=== PATIENT | female | born 1945 | race Caucasian/White ===

== ENCOUNTER 2017-04-07 13:29 | Emergency (ER) | payer MEDICARE ==
[~2017-04-07] VITALS: Ht 160 cm; Wt 65.9 kg
[2017-04-07 13:32] VITALS: BP 149/93; PULSE 83; RESP 15; O2SAT 94
--- NOTE | 2017-04-07 13:57 | ED.REPORT ---
HPI-Stroke / CVA Apr 07, 2017 ED Provider: Keon Solorzano MD The pt is a 71 y/o female on Aspirin with a hx of TIA and osteoporosis who presents to the ED complaining of difficulty maintaining balance, onset 3 days ago. She has felt the need to hold onto something when walking due to lightheadedness. She states "it feels like I'm in a fog." She felt better yesterday but her sx worsened significantly today. The pt had similar sx last week at which point she had a CT done at [facility] and was diagnosed with a TIA. She has been taking Aspirin and Lipitor since. Today, she also complains of tremors, nausea and an unusual feeling in her left eye. She is unable to describe the feeling in her left eye. She denies pain anywhere, unilateral numbness or weakness, speech problems and difficulty swallowing. Nursing Notes Stated Complaint: POSS AFFECTS FROM MINI STROKE (1 WK AGO) Chief Complaint: Neuro Symptoms/ Deficits Nursing Notes Reviewed: Yes (Airpush, FiveRunss not reconciled) Allergies: Coded Allergies: No Known Allergies (Unverified , 04/07/17) General Time Seen by Provider: 13:42 Chief Complaint Other (difficulty maintaining balance) Hx Obtained From: Patient Arrived By: Walk-in Time last known well 3 days ago Sudden in Onset?: Yes Symptom Duration: Since onset Progression Since Onset: Unchanged Severity: Current: No pain currently Severity: Maximum: No pain Recent Healthcare: Recent doctor visit Similar Sx Previous: Yes Risk Factors )( TPA Administration/Criteria Stroke Thrombolytic Therapy : TPA Considered: Yes TPA Administered Intravenously: No, exclusion criteria Exclusion Criteria: Prior stroke / 90 days NIH Stroke Scale Level of Consciousness: Not alert, arousable (1) Ask Month & Age: Both questions right (0) Open/Close Eyes/Hand Polisher Implant: Performs both tasks (0) Horizontal EO Movements: None (0) Visual Alex: No visual loss (0) Facial Palsy: Normal symmetry (0) Right Arm Motor Drift (10s): No drift 10 sec (0) Left Arm Motor Drift (10s): No drift 10 sec (0) Right Leg Motor Drift (5s): No drift 5 sec (0) Left Leg Motor Drift (5s): Drift, not touch bed (1) Limb Ataxia FNF/Heel-Moirn: No ataxia (0) Sensation (Arms/Legs/Face): No sensory loss (0) Language Aphasia: No aphasia, normal (0) Dysarthria: No dysarthria, normal (0) NIHSS Score: 1 Time NIHSS Performed: 13:28 Date NIHSS Performed: Apr 07, 2017 Past Medical History Past Medical History Diagnosed with TIA 01/22/2017, started on aspirin plus statin Osteoporosis History of "collagenous colitis" History of megaloblastic anemia or EMR History of compression fractures of thoracic vertebra and acquired postural kyphosis TIA Past Surgical History none reported Smoking History Never Smoker ("I Vape") Social History Alcohol Use: 1-3 per day ("1 drink/night") Drug Use: Denies drug use Ambulatory Status Independent Review of Systems Reports: unusual feeling in the left eye Denies: pain anywhere GI: Reports: Nausea, Denies: Dysphagia Neurologic: Reports: Lightheaded, Problem walking (difficulty maintaining balance), Shaking, Denies: Numbness (unilaterally), Slurred speech, Unable to speak, Weakness ( unilaterally) Complete sys rev & neg: except as marked. Physical Exam Initial Vital Signs Vital Signs (First) Date Time Temp Pulse Resp B/P Pulse Ox O2 Delivery O2 Flow Rate FiO2 04/07/17 13:32 37.1 83 15 149/93 94 Room Air Initial VS: Reviewed, Vital signs normal Abdomen / GI: Soft, Non-tender Extremities: Vascular intact, Neuro intact, No swelling, No tenderness Skin: Warm, Dry, No cyanosis General/Constitutional: Awake, Alert, No acute distress, Cooperative Head / Eyes: Atraumatic, Normocephalic, PERRL, EOMI Neck: Atraumatic, Supple, Full range of motion, No swelling, Non-tender Respiratory / Chest: Atraumatic, Breath sounds NL, Breath sounds = bilat, No respiratory distress, No rales, No rhonchi, No wheezing Cardiovascular: Heart rate NL, Regular rhythm, Heart sounds NL, No gallop, No murmurs, No rubs Neurologic: Oriented X3, Speech NL, No motor deficits, No sensory deficits Speech ok Tremors bilaterally that she says is new. Left leg drift. Upper Extremity / MS: Atraumatic, Full range of motion, No swelling, No erythema, No deformity, Neurologic intact, Vascular intact Lower Extremity / Pelvis / MS: Atraumatic, Full range of motion, No swelling, No deformity, Neurologic intact, Vascular intact Interpretation & Diagnostics Interpretation & Diagnostics: MRI STROKE PROTOCOL: BRAIN MRI: 1. No acute intracranial abnormalities. 2. Addis-ventricular and deep white matter chronic small vessel ischemic change. BRAIN MR ANGIOGRAM: No hemodynamically significant lesions of the central intracranial vasculature. NECK MR ANGIOGRAM: No hemodynamically significant lesions of the extracranial neck vasculature. The estimate of stenosis included in the report of the imaging study was calculated using the NASCET method Dictated by: Ruperto Nieves M.D. on 04/07/2017 at 19:29 Lab Results Interpretation Result Diagram: 04/07/17 1516 04/07/17 1516 Test 04/07/17 13:43 04/07/17 15:16 04/07/17 15:17 Urine Color Straw (YELLOW) Urine Appearance Hazy (CLEAR,HAZY) Urine pH 6.0 (5.0-8.0) Urine Specific [place] 1.005 (1.003-1.035) Urine Protein Negativemg/dL (NEG,TRACE) Urine Glucose (UA) Negativemg/dL (NEGATIVE) Urine Ketones Negativemg/dL (NEGATIVE) Urine Occult Blood Negative (NEGATIVE) Urine Nitrite Negative (NEGATIVE) Urine Bilirubin Negative (NEGATIVE) Urine Urobilinogen Normalmg/dL (NORMAL) Urine Leukocyte Esterase Negative (NEGATIVE) Urine RBC 0-2/hpf (0-2) Urine WBC 0-5/hpf (0-5) Urine Epithelial Cells Occasional/hpf (NONE-MOD) Urine Crystals None seen (NONE SEEN) Urine Bacteria None/hpf (NONE-FEW) Urine Hyaline Casts None/lpf (NONE) Urine Granular Casts None seen (NONE SEEN) Urine Waxy Casts None seen (NONE SEEN) Urine Red Blood Cell Casts None seen (NONE SEEN) Urine White Blood Cell Casts None seen (NONE SEEN) Urine Mucus None seen (None Seen) Urine Trichomonas None seen (NONE SEEN) Urine Yeast None (NONE SEEN) Urinalysis Comment None Urine Culture Reflexed Not indicated White Blood Count 7.2th/mm3 (3.8-10.1) Red Blood Count 3.92mil/mm3 (3.90-5.20) Hemoglobin 13.4g/dL (12.0-15.6) Hematocrit 39.8% (35.0-46.0) Mean Corpuscular Volume 101.5fL (81-100) Mean Corpuscular Hemoglobin 34.2pg (27.0-35.0) Mean Corpuscular Hemoglobin Concent 33.7% (32.0-37.0) Red Cell Distribution Width 12.7% (12.3-15.4) Platelet Count 230bil/L (150-400) Neutrophils (%) (Auto) 69.8% (40-74) Lymphocytes (%) (Auto) 21.7% (14-46) Monocytes (%) (Auto) 7.2% (4-12) Eosinophils (%) (Auto) 0.7% (0-5) Basophils (%) (Auto) 0.6% (0-3) Prothrombin Time 10.0sec (8.1-12.5) Prothromb Time International Ratio 0.94ratio Activated Partial Thromboplast Time 26.1sec (22.8-33.0) Sodium Level 141mEq/L (134-144) Potassium Level 4.2mEq/L (3.5-5.2) Chloride Level 100mEq/L (97-108) Carbon Dioxide Level 25mmol/L (18-29) Blood Urea Nitrogen 9mg/dL (8-27) Creatinine 0.48mg/dL (0.57-1.00) Estimat Glomerular Filtration Rate 183mL/min (>59) Glucose Level 101mg/dL (60-99) Calcium Level 9.7mg/dL (8.5-10.1) Total Bilirubin 0.6mg/dL (0.0-1.2) Aspartate Amino Transf (AST/SGOT) 29U/L (0-50) Alanine Aminotransferase (ALT/SGPT) 21U/L (0-32) Alkaline Phosphatase 63U/L (25-165) Troponin T < 0.010ug/L (0.0-0.011) Total Protein 7.3g/dL (6.4-8.4) Albumin 4.2g/dL (3.4-5.0) Hold Read Top Tube Received (Received) Lab Results Interpretation: CBC normal CMP normal troponin negative UA negative ECG Interpretation Time: 14:17 Interpreted by: ED physician Normal ECG Interpretation: Normal ECG w/ rate of... (76), Normal sinus rhythm CT Head Interpretation IMPRESSION: 1. No acute intracranial abnormality. 2. Mild chronic white matter small vessel ischemic changes and cerebral volume loss. Dictated by: Zenon Leon M.D. on 04/07/2017 at 14:10 Approved by: Zenon Leon M.D. on 04/07/2017 at 14:13 Study: Head CT no contrast Re-Eval/Medical Decision Med Decision/Clinical Course This is a 71-year-old female presents with a concern for repeat stroke. She reports she had an episode that was diagnosed as a probable TIA about 2 weeks ago as an outpatient which had a workup through [place], she was placed on aspirin. Over the past 3 days she has felt that she has not been right" she has been in a fog, that she is having difficulty with balance and coordination, though I cannot get her to really endorse clear cut focal deficits. She has not had a headache, fever or additional symptoms. On exam she appears generally well. There is a concern on her and her stroke scale testing that maybe she has a little left leg weakness, as her seems to be some asymmetry and trace to-although the patient retesting was able to ambulate without much difficulty and passed a physical therapy evaluation. Given the concern about a previous stroke 2 weeks ago now with new symptoms, I recommended admission for an MRI and formal workup, the patient thus far has declined. Therefore an extensive workup is being evaluated here, noncontrast head CT revealed no hemorrhagic conversion or abnormality. EKG is normal, blood work is normal, at this point an MRI is being obtained for further evaluation. If negative immediately be reasonable to discharge the patient to home she prefer, but if abnormal I think the patient may return either consent to admission, or be discharged AGAINST MEDICAL ADVICE. The patient's preterminal oncoming partner change shift pending MRI results. She does currently have outpatient neurology consultation scheduled-but not until July Notes from Dr. Smith: Patient's MRI returned showing no acute findings. These are discussed with the patient and she was very pleased to hear this. Her symptoms are no longer present and she is wanting to go home. I have asked her to follow up with her primary care provider within the next week for a reevaluation/recheck. Patient is agreeable. Source of Hx: Old records Re-Evaluation/Progress #1: Time of Eval: 16:04 Re-Evaluation/Progress Note: Rechecked pt. Discussed lab results, imaging results,diagnosis and plan to admit. Pt understands and agrees with the plan for admission. All questions addressed. Re-Evaluation/Progress #2: Time of Eval: 19:33 Patient Status: Condition improved Re-Evaluation/Progress Note: Recheck by Dr. Smith. Discussed transfer of care and history of present illness. Re-Evaluation/Progress #3: Time of Eval: 21:05 Patient Status: Condition improved Re-Evaluation/Progress Note: Recheck by Dr. Smith, discussed MRI results and plan for discharge. Pt understands and agrees. Differential Diagnosis: Negative: Atrial fibrillation Counseled Regarding: Diagnosis, Lab results, Need for follow-up, When/why to return to ED Patient Discharge & Departure Shift Change Sign-Out Laboratory Evaluation: Back, reviewed by me Imaging Studies: Ordered, not yet done Impression: Primary Impression: Tremor Additional Impressions: Poor balance Lightheadedness Elevated blood pressure reading Ruled Out: CVA (cerebral vascular accident) Disposition: Home Discharge Condition All VS Reviewed: Yes Condition: Stable Additional Instructions: Thank you for trusting us with your care today. Your MRI does not reveal any dangerous neurologic findings that could explain your symptoms. You are being discharged home at this time, however I would like you to see your primary care provider within 1 week of being discharged today to further evaluate symptoms you have been experiencing. Return to the ER for any new or worsening symptoms Referrals: Darian Banerjee MD (PCP) Care Transferred to: Dr. Smith Care Transferred at: 18:00 Scribe Attestation Portions of this note were transcribed by Kevon Cummins. I,, personally performed the history, physical exam and medical decision-making;I reviewed and confirmed the accuracy of the information in the transcribed note. Signed by Branden Gonzalez. 04/07/17 copies to: Darian Banerjee MD, Matthew F MD Apr 07, 2017 13:57 Kevon Cummins Apr 07, 2017 14:08 Spencer Smith DO Apr 07, 2017 21:12 MARIANNE LOPEZ Apr 07, 2017 21:15
--- NOTE | 2017-04-07 14:14 | DRSVH ---
PROCEDURE: CT BRAIN WITHOUT CONTRAST ([id number]) INDICATIONS: Stroke-unsteady gait and dizziness. TECHNIQUE: Noncontrast 4.5 mm thick angled axial sections acquired from the foramen magnum to the vertex, with c oronal reformats. COMPARISON: None. FINDINGS: Image quality: Excellent. CSF spaces: Basal cisterns are patent. No extra-axial fluid collections. The ventricles are symmet claudio in size and shape. There is mild cerebral volume loss, with resultant ventricular and sulcal pro minence. Brain: No intracranial hemorrhage, mass, or mass effect. There are subcortical, periventricular and deep white matter hypodensities consistent with mild chronic small vessel ischemic changes. There i s intracranial internal carotid artery atherosclerosis. Skull and face: Calvarium and visualized facial bones appear intact, without suspicious lesions. Sinuses: Visualized sinuses and mastoids are clear. IMPRESSION: 1. No acute intracranial abnormality. 2. Mild chronic white matter small vessel ischemic changes and cerebral volume loss. Dictated by: Zenon Leon M.D. on 04/07/2017 at 14:10 Approved by: Zenon Leon M.D. on 04/07/2017 at 14:13
[2017-04-07 15:19] LABS: BASOPHILS % (AUTO) 0.6 % (0-3); EOSINOPHILS % (AUTO) 0.7 % (0-5); MONOCYTES % (AUTO) 7.2 % (4-12); Mean Corpuscular Hemoglobin 34.2 pg (27.0-35.0); Mean Corpuscular Volume 101.5 fL (81-100); NEUTROPHILS % (AUTO) 69.8 % (40-74); Platelet Count 230 bil/L (150-400)
[2017-04-07 15:26] LABS: APPEARANCE,URINE HAZY (CLEAR,HAZY); COLOR,URINE STRAW (YELLOW); OCCULT BLOOD,URINE NEGATIVE (NEGATIVE); UROBILINOGEN,URINE NORMAL (NORMAL)
[2017-04-07 15:34] VITALS: BP 147/75; PULSE 77; RESP 20; O2SAT 99
[2017-04-07 15:35] LABS: INR 0.94 ratio
--- NOTE | 2017-04-07 15:44 | NUR ---
Evaluation completed. Please go to "Notes" then click on "Assessments and Notes" (bottom left corner of screen). Then select appropriate discipline tab on top of screen.
[2017-04-07 15:48] LABS: TROPONIN T < 0.010 ug/L (0.0-0.011)
--- NOTE | 2017-04-07 16:20 | NUR ---
Evaluation completed. Please go to "Notes" then click on "Assessments and Notes" (bottom left corner of screen). Then select appropriate discipline tab on top of screen.
[2017-04-07 17:40] VITALS: BP 157/78; PULSE 87; RESP 20; O2SAT 98
--- NOTE | 2017-04-07 19:41 | DRSVH ---
PROCEDURE: MRI STROKE PROTOCOL ([id number]) Pre- and post-contrast brain MRI, non-contrast brain MR angiogram, pre- and postcontrast neck MR dafne ogram INDICATIONS: 71 year-old female with ataxia, confusion, and left lower extremity weakness. TECHNIQUE: Brain: Noncontrast axial T1 spin echo, axial T2 fast spin echo, sagittal and axial FLAIR, coronal T2 fast spin echo, axial gradient echo, axial diffusion and ADC through the brain. After the administr ation of contrast, axial 3D VIBE of the cranial vasculature and brain. Brain MRA: Non-contrast 3-D time of flight MR angiogram, with multiple vthlixr-ofswjraio-aqifvablmf (MIP) reformats performed. Neck MRA: Axial and sagittal TruFISP through the neck. Coronal dynamic MR angiogram during administ ration of contrast in the arterial and venous phases, with 3-dimenstional quclnlz-ehngdyqvm-xcuufsjyl n (MIP) reformats constructed from subtraction images. COMPARISON: [facility], CT, CT BRAIN WO CON, 04/07/2017, 13:59. FINDINGS: Image quality: Excellent. BRAIN: CSF spaces: Ventricles are normal in size and shape. Basal cisterns are patent. No extra-axial flu id collections. Brain: No intracranial bleeds or mass effects. There is periventricular and deep white matter chroni c small vessel ischemic change. Diffusion weighted images show no acute ischemic insults. Brainstem appears normal. Normal intravascular flow voids are present. No abnormal intracranial enhancement. Skull and face: Calvarial marrow signal is normal. Orbits appear normal. Sinuses: Sinuses and mastoids are clear. BRAIN MR ANGIOGRAM: Anterior circulation: Intracranial internal carotid arteries are normal in size and enhancement. Th e flow within the paired anterior cerebral arteries is normal and symmetric. The flow within the mid dle cerebral arteries is normal and symmetric. The anterior communicating artery is seen. No stenos es, occlusions, or aneurysms. Posterior circulation: The visualized portions of the vertebral arteries demonstrate normal caliber, and join to form a normal appearing basilar artery. The flow within the posterior cerebral arteries is normal and symmetric. No stenoses, occlusions, or aneurysms. NECK MR ANGIOGRAM: Carotids: Great vessels demonstrate a conventional anatomy as they arise from the aortic arch. The origins of the common carotid arteries appear patent. The calibers and courses of both common caroti d arteries are normal. The bifurcation regions appear normal bilaterally. The internal carotid nicole gaetano demonstrate normal course and caliber. Posterior circulation: The origins of the codominant vertebral arteries appear tortuous but patent. More superior portions of both vertebral arteries demonstrate normal course and caliber, and join to form a normal appearing basilar artery. Miscellaneous: Subclavian arteries appear patent. Pre-contrast images through the neck show no soft tissue abnormalities. IMPRESSION: BRAIN MRI: 1. No acute intracranial abnormalities. 2. Addis-ventricular and deep white matter chronic small vessel ischemic change. BRAIN MR ANGIOGRAM: No hemodynamically significant lesions of the central intracranial vasculature. NECK MR ANGIOGRAM: No hemodynamically significant lesions of the extracranial neck vasculature. The estimate of stenosis included in the report of the imaging study was calculated using the NASCET method Dictated by: Ruperto Nieves M.D. on 04/07/2017 at 19:29 Approved by: Ruperto Nieves M.D. on 04/07/2017 at 19:40
[2017-04-07 20:08] VITALS: BP 167/100; PULSE 75; RESP 20; O2SAT 94
== END 2017-04-07 21:07 | disposition home or self-care (01) ==
LOC: SED 13:29
DX: R25.1 Tremor, unspecified (principal); R26.81 Unsteadiness on feet; R42 Dizziness and giddiness; R03.0 Elevated blood-pressure reading, without diagnosis of hypertension; M81.0 Age-related osteoporosis without current pathological fracture; Z86.73 Personal history of transient ischemic attack (TIA), and cerebral infarction without residual deficits; Z87.310 Personal history of (healed) osteoporosis fracture; Z79.82 Long term (current) use of aspirin
CPT/HCPCS: 36415; 70450; 70549; 70553; 80053; 81000; 82948; 84484; 85025; 85610; 85730; 92610; 93005; 97161; 99285; A9585